=== PATIENT | female | born 1955 | race Caucasian/White ===

== ENCOUNTER → 2016-09-23 | Outpatient (CLI) | payer BC ==
[2016-09-23 15:19] LABS: MEAN PLATELET VOLUME 9.7 FL (6.0-9.5); PLATELET COUNT 214 10^3uL (150-450); WHITE BLOOD COUNT 2.39 10^3uL (4.0-11.0)
[2016-09-23 15:31] LABS: MEAN CORPUSCULAR HEMOGLOBIN 36.6 PG (26.0-34.0); MEAN CORPUSCULAR HGB CONC 35.6 g/dL (31.0-37.0); MEAN CORPUSCULAR VOLUME 103 FL (80-100)
[2016-09-23 16:03] LABS: BAND NEUTROPHILS % 0 % (0-6); EOSINOPHILS % 3 % (0-4); LYMPHOCYTES # 0.6 #; MONOCYTES # 0.2 #; MONOCYTES % 8 % (3-11); SEGMENTED NEUTROPHILS % 65 % (51-67); TOTAL CELLS COUNTED 100
[2016-09-23 16:04] LABS: RBC MORPH SEE REFERENCE (NORMAL)
== END ==
LOC: LAB 15:06
PROVIDERS: ATTEND Internal Medicine Hematology & Oncology
DX: C50.412 Malignant neoplasm of upper-outer quadrant of left female breast (principal)
CPT/HCPCS: 36415; 85007; 85027